=== PATIENT | female | born 1950 | race Caucasian/White ===

== ENCOUNTER 2017-04-04 10:28 | Emergency (ER) | payer MEDICAID, OTHER ==
[2017-04-04 10:36] VITALS: BP 163/87; PULSE 95; RESP 18; TEMP 98.8; O2SAT 99
--- NOTE | 2017-04-04 11:03 | C.PDOC ---
History Of Present Illness 67 year old female w/PMHx of HTN presents to the ED for evaluation of an itchy rash which gradually developed on her left forearm over the past 4 days. Patient admits she was working in a backyard a few days prior to the onset of her current symptoms. Patent notes the rash is "extremely itchy " has spread slightly around Left forearm. Patient denies fever, chills, headache, dizziness , throat tightness or swelling, CP, SOB, dyspnea, diaphoresis, palpitation, wheezing, abd. pain, N/V/D, denies direct trauma/injury to the affected area, denies weakness, sensorivascular deficits to extremity. Ambulate to ED fr evaluation, not n any apparent distress. Time Seen by Provider: 04/04/17 10:41 Chief Complaint (Nursing): Abnormal Skin Integrity History Per: Patient History/Exam Limitations: no limitations Onset/Duration Of Symptoms: Days (4), Gradual Current Symptoms Are (Timing): Still Present Location Of Injury: Left: Forearm Quality Of Symptoms: Itching Additional History Per: Patient Past Medical History Reviewed: Historical Data, Nursing Documentation, Vital Signs Vital Signs: Last Vital Signs Temp 98.8 F 04/04/17 10:32 Pulse 95 H 04/04/17 10:32 Resp 18 04/04/17 10:32 BP 163/87 H 04/04/17 10:32 Pulse Ox 99 04/04/17 11:07 - Medical History PMH: HTN, Hypercholesterolemia Surgical History: No Surg Hx Family History: States: Unknown Family Hx - Social History Hx Tobacco Use: No Hx Alcohol Use: No Hx Substance Use: No - Immunization History Hx Tetanus Toxoid Vaccination: No Hx Influenza Vaccination: No Hx Pneumococcal Vaccination: No Review Of Systems Constitutional: Negative for: Fever, Chills ENT: Negative for: Throat Swelling Respiratory: Negative for: Cough, Shortness of Breath, Wheezing Skin: Positive for: Rash (itchy, to left forearm ). Negative for: Lesions, Bruising, Other (trauma/injury ) Neurological: Negative for: Weakness, Numbness Physical Exam - Physical Exam Appears: Well, Non-toxic, No Acute Distress Skin: Warm, Dry, Rash (vesicular rash in line over dorsal and volar aspects of left wrist. no signs of cellulitis or fluctuance ) Eye(s): bilateral: PERRL Nose: No Flaring, No Discharge Oral Mucosa: Moist, No Drooling Tongue: Normal Appearing, No Swelling Lips: Normal Appearing, No Swelling Throat: Normal, No Erythema, No Exudate, No Drooling, Other (uvula midine, no edema.) Neck: Supple Chest: Symmetrical, No Deformity, No Tenderness Cardiovascular: Rhythm Regular, No Murmur, No JVD Respiratory: No Decreased Breath Sounds, No Accessory Muscle Use, No Rales, No Rhonchi, No Stridor, No Wheezing Gastrointestinal/Abdominal: Soft Extremity: No Tenderness, Capillary Refill (less than 2 seconds ), No Swelling Pulses: Left Radial: Normal Neurological/Psych: Oriented x3, Normal Speech, Normal Cognition Gait: Steady ED Course And Treatment O2 Sat by Pulse Oximetry: 99 (on RA) Pulse Ox Interpretation: Normal Progress Note: Benadryl PO, Pepcid PO, and Prednisone PO administered. On re- eval, pt is afebrile, hemodynamicaly stable. non-toxic, tolerate Po well in ED. PusleOx 99% RA. ENT: no acute findings. uvula midline, no edema. Neck: Supple. Lungs: CTA B/L, BS equal B/L,. Abd: benign. SKin: exam c/w vesiluar rash to Left forearm r/o contact dermatitis possible due to poison lily. HTN noted on triage, pt admits " did not take her BP medication yet", otherwise, denies any associated sx. Pt advised on course of ds. ref. to f/u with PMD and Derm in 2-3 days for re-eavl. return to ED if any worsening or new changes. Disposition Counseled Patient/Family Regarding: Diagnosis, Need For Followup, Rx Given - Disposition Referrals: Phuong Mahmood [Medical Doctor] - Disposition: HOME/ ROUTINE Disposition Time: 11:23 Condition: STABLE Additional Instructions: Encourage fluids Take medication as prescribed Follow up with PMD, Dermatologies in 2-3 days for re-evaluation. Return to ED if any worsening or new changes. 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 - Scribe Statement The provider has reviewed the documentation as recorded by the Scribe (Xiomara Treviño) All medical record entries made by the Scribe were at my direction and personally dictated by me. I have reviewed the chart and agree that the record accurately reflects my personal performance of the history, physical exam, medical decision making, and the department course for this patient. I have also personally directed, reviewed, and agree with the discharge instructions and disposition.
== END 2017-04-04 11:49 | disposition home or self-care (01) ==
LOC: C.ER 10:28
DX: L25.9 Unspecified contact dermatitis, unspecified cause (principal)